=== PATIENT | male | born 1980 | race Caucasian/White ===

== ENCOUNTER 2020-10-29 15:52 | Emergency (ER) | payer OTHER ==
[2020-10-29 16:04] VITALS: BP 132/85; PULSE 100; TEMP 98; BMI 27.4
[2020-10-29] MEDS ORDERED: DIPHTH,PERTUSS(ACELL),TET 0.5 ML DISP.SYRIN IM ONE ×2 (17:58→17:59)
== END 2020-10-29 18:40 | disposition home or self-care (01) ==
LOC: JERFT 15:52
PROC: 0HQKXZZ Repair Right Lower Leg Skin, External Approach (ICD-10-PCS; principal; 2020-10-29)
PROC: 3E0234Z Introduction of Serum, Toxoid and Vaccine into Muscle, Percutaneous Approach (ICD-10-PCS; 2020-10-29)
DX: S81.811A Laceration without foreign body, right lower leg, initial encounter (principal)
CPT/HCPCS: 71046-TC-FY; 71101-TC-RT-FY; 73590-TC-RT-FY; 90471; 90715; 99285-25

== ENCOUNTER 2020-11-05 13:52 | Emergency (ER) | payer SELFPAY ==
[2020-11-05 14:33] VITALS: BP 120/77; PULSE 77; TEMP 98; BMI 30.7
== END 2020-11-05 14:51 | disposition home or self-care (01) ==
LOC: JER 13:52 → JERFT 13:52 → SUPCPDRO 13:52 → JERFT 14:51
DX: Z48.02 Encounter for removal of sutures (principal)
CPT/HCPCS: 99281-25